=== PATIENT | female | born 2000 | race Caucasian/White ===

== ENCOUNTER 2022-09-16 17:55 | Inpatient (IN) | payer BC, OTHER ==
[~2022-09-16] VITALS: Ht 157.4 cm; Wt 85.0 kg
[2022-09-16 18:00] VITALS: BP 115/75
[2022-09-16] MEDS ORDERED: LEVO25CA4 PO (18:42)
[2022-09-16] MEDS ORDERED: PREN1TAB19 PO (18:44)
[2022-09-16] MEDS ORDERED: NS IV 500 ML 500 ML IV SCH (19:30)
[2022-09-16] MEDS ORDERED: NS IV 500 ML 500 ML ONE (19:35)
[2022-09-16] MEDS ORDERED: D5 LR IV SOLUTION 1,000 ML IV ONE (19:35)
[2022-09-16 19:40] LABS: BILIRUBIN,URINE NEGATIVE (NEGATIVE); CLARITY,URINE SL CLOUDY; COLOR,URINE YELLOW; GLUCOSE, URINE (UA) NEGATIVE (NEGATIVE); KETONES,URINE TRACE (NEGATIVE); LEUKOCYTE ESTERASE ,URINE 2+ (NEGATIVE); NITRITE,URINE NEGATIVE (NEGATIVE); PROTEIN,URINE TRACE (NEGATIVE)
[2022-09-16] MEDS: CATHETER FLUSH 10 ML SYR IV SCH (19:42)
[2022-09-16 19:52] LABS: BACTERIA,URINE FEW /HPF; RBC,URINE 0-2 /HPF; SQUAMOUS EPITHELIAL CELL,UR 25-50 /HPF
[2022-09-16 19:53] LABS: EOSINOPHILS # (AUTO) 0.1 10^3/uL (0.0-0.3); EOSINOPHILS % (AUTO) 1 % (0-10); HEMOGLOBIN 12.1 g/dL (11.5-16.0); LYMPHOCYTES % (AUTO) 16 % (12-44)
[2022-09-16 19:55] LABS: BASOPHILS % (AUTO) 0 % (0-10); HEMATOCRIT 34 % (35-52); LYMPHOCYTES # (AUTO) 1.4 10^3/uL (1.0-4.0); MEAN CORPUSCULAR HEMOGLOBIN 32 pg (25-34); MEAN CORPUSCULAR HGB CONC 35 g/dL (32-36); MEAN CORPUSCULAR VOLUME 90 fL (80-99); MEAN PLATELET VOLUME 13.1 fL (9.0-12.2); MONOCYTES # (AUTO) 0.9 10^3/uL (0.0-1.0); MONOCYTES % (AUTO) 10 % (0-12); NEUTROPHILS # (AUTO) 6.7 10^3/uL (1.8-7.8); NEUTROPHILS % (AUTO) 74 % (42-75); PLATELET COUNT 123 10^3/uL (130-400); WHITE BLOOD COUNT 9.2 10^3/uL (4.3-11.0)
[2022-09-16 19:56] LABS: SMEAR SCAN COMMENT YES
[2022-09-16] MEDS: D5 LR IV SOLUTION 1,000 ML IV SCH (19:58)
[2022-09-16 20:32] VITALS: BP 115/75
--- NOTE | 2022-09-16 20:37 | History & Physical-OB ---
CAMILLEBEAU 09/16/222036: OB - Chief Complaint & HPI Date/Time Date of Admission: Date of Admission: Sep 16, 2022 at 17:55 Date seen by a Provider: Sep 16, 2022 Time Seen by a Provider: 21:00 Chief Complaint/History OB-Reason for Admission/Chief: Induction of Labor Hx : 2 Hx Para: 1 Hx Last Menstrual Period: 12/11/2021 Expected Date of Delivery: Sep 17, 2022 Gestational Age in Weeks: 39 Gestational Age in Days: 6 History of Labs Laboratory Tests 09/16/22 19:42 Other Rh+ and GBS negative 22yo at [id number] presents for elective induction of labor. Pt reported 1 or 2 contractions at admission, but currently not in any pain or discomfort. Pt states she is able to ambulate for urine and fecal elimination. Pt's membranes are intact. Platelets and Hct are low at 123,000 and 34% respectively. Urinalysis reports trace proteins and ketones, as well as 2+ for Leukocyte Esterase. Allergies and Home Medications Allergies Coded Allergies: No Known Drug Allergies (Unverified , 09/16/22) Patient Home Medication List Home Medication List Reviewed: Yes Levothyroxine Sodium (Levothyroxine) 25 Mcg Capsule, 25 MCG PO DAILY, (Reported) Entered as Reported by: BRYAN FIGUEROA on 09/16/221841 Last Action: New Order Vit/Iron Fumarate/FA ( Vitamins Tablet) 28 Mg Iron-800 Mcg Tablet, 1 EACH PO DAILY, (Reported) Entered as Reported by: BRYAN FIGUEROA on 09/16/221843 Last Action: New Order OB - History Hx of Present Care: Yes Obstetrical Complications: None Medical Complications: Other (Hypothyroidism currently managed/controlled with 25mcg Levothyroxine ) Information Induced Hypertension: No Maternal Gestational Diabetes: No Hemorrhage: No Obstetrical History Hx : 2 Hx Para: 1 Hx # Term Pregnancies: 0 Hx # Pregnancies: 0 Number of Living Children: 0 Hx Termination: No Hx Total # of Abortions (Spona: 1 Hx Multiple Gestation: No Hx Ectopic : No Hx Stillbirth: No Hx Complication: No Hx Induced Hypertens: No Hx Maternal Gestational Diabet: No Hx Hemorrhage: No Patient Past Medical History Past medical history positive for hypothyrodism. Managed w/ 25mcg Levothyroxine. Social History/Family History Alcohol Use: Denies Use Recreational Drug Use: No Smoking Cessation: Former smoker 2nd Hand Smoke Exposure: No Immunizations Influenza Vaccine Up-to-Date: No; Not Current Tetanus Booster (TDap): Less than 5yrs Rubella: immune RPR/VDRL: Negative GBS Status: Negative HBsAG: Negative OB - Admission Exam Physical Exam Vitals: Vital Signs 09/16/22 18:00 Temp 37.3 Pulse 88 Resp 18 B/P (MAP) 115/75 (88) Pulse Ox 99 O2 Delivery Room Air Heart: Rhythm Normal (RRR normal S1 and S2 without gallops ) Lungs: Clear (CTAB w/o Rhonci, Rales, or wheezes) Abdomen: Gravid Extremities: Edema (Trace Edema ) Cervical Dilatation: 1cm Effacement: Other (80%) Membranes: Intact Heart Rate: 130's Accelerations: Accelerations Present Contractions on Admission: None Labs Laboratory Tests Test 09/16/22 19:24 09/16/22 19:42 Range/Units Urine Color YELLOW Urine Clarity SL CLOUDY Urine pH 6.0 5-9 Urine Specific [place] 1.025 H 1.016-1.022 Urine Protein TRACE H NEGATIVE Urine Glucose (UA) NEGATIVE NEGATIVE Urine Ketones TRACE H NEGATIVE Urine Nitrite NEGATIVE NEGATIVE Urine Bilirubin NEGATIVE NEGATIVE Urine Urobilinogen 0.2 < = 1.0 MG/DL Urine Leukocyte Esterase 2+ H NEGATIVE Urine RBC (Auto) NEGATIVE NEGATIVE Urine RBC 0-2 /HPF Urine WBC 5-10 H /HPF Urine Squamous Epithelial Cells 25-50 H /HPF Urine Crystals NONE /LPF Urine Bacteria FEW H /HPF Urine Casts NONE /LPF Urine Mucus SMALL H /LPF Urine Culture Indicated YES White Blood Count 9.2 4.3-11.0 10^3/uL Red Blood Count 3.80 3.80-5.11 10^6/uL Hemoglobin 12.1 11.5-16.0 g/dL Hematocrit 34 L 35-52 % Mean Corpuscular Volume 90 80-99 fL Mean Corpuscular Hemoglobin 32 25-34 pg Mean Corpuscular Hemoglobin Concent 35 32-36 g/dL Red Cell Distribution Width 13.5 10.0-14.5 % Platelet Count 123 L 130-400 10^3/uL Mean Platelet Volume 13.1 H 9.0-12.2 fL Immature Granulocyte % (Auto) 0 % Neutrophils (%) (Auto) 74 42-75 % Lymphocytes (%) (Auto) 16 12-44 % Monocytes (%) (Auto) 10 0-12 % Eosinophils (%) (Auto) 1 0-10 % Basophils (%) (Auto) 0 0-10 % Neutrophils # (Auto) 6.7 1.8-7.8 10^3/uL Lymphocytes # (Auto) 1.4 1.0-4.0 10^3/uL Monocytes # (Auto) 0.9 0.0-1.0 10^3/uL Eosinophils # (Auto) 0.1 0.0-0.3 10^3/uL Basophils # (Auto) 0.0 0.0-0.1 10^3/uL Immature Granulocyte # (Auto) 0.0 0.0-0.1 10^3/uL Percent Immature Platelet Fraction 26.4 H 0.0-7.6 % Smear Scan YES OB - Assessment/Plan/Diagnosis Assessment Assessment: induction of labor Admission Dx Elective Induction of Labor Planned Admission Status: Observation Plan Induction Method: per Misoprostol Protocol MC SHEPARD DO 09/17/22 0718: Allergies and Home Medications Allergies Coded Allergies: No Known Drug Allergies (Unverified , 09/16/22) Patient Home Medication List Levothyroxine Sodium (Levothyroxine) 25 Mcg Capsule, 25 MCG PO DAILY, (Reported) Entered as Reported by: BRYAN FIGUEROA on 09/16/221841 Last Action: New Order Vit/Iron Fumarate/FA ( Vitamins Tablet) 28 Mg Iron-800 Mcg Tablet, 1 EACH PO DAILY, (Reported) Entered as Reported by: BRYAN FIGUEROA on 09/16/221843 Last Action: New Order OB - Assessment/Plan/Diagnosis Plan Other Plan Verification and Attestation of Medical Student E/M Service A medical student performed and documented this service in my presence. I reviewed and verified all information documented by the medical student and made modifications to such information, when appropriate. I personally performed the physical exam and medical decision making. Mc Shepard, Sep 17, 2022,07:18 BEAU OBRIEN Sep 16, 2022 20:37 MC SHEPARD DO Sep 17, 2022 07:18
[2022-09-16 22:30] VITALS: BP 123/63
[2022-09-17] VITALS (75 sets, daily range): BP systolic 100–155; BP diastolic 54–96
[2022-09-17] MEDS: D5 LR IV SOLUTION 1,000 ML IV SCH ×3 (03:10→18:53)
[2022-09-17] MEDS ORDERED: OXYTOCIN PRE-MIX DRIP 500 ML IV SCH (07:45)
[2022-09-17] MEDS ORDERED: LACTATED RINGERS 1,000 ML IV ONE ×3 (09:30→10:45)
[2022-09-17] MEDS ORDERED: fentaNYL 2 mcg/ml BUPIVA 0.125 100 ML ONE (09:30)
[2022-09-17] MEDS ORDERED: HYDROmorphone 2 MG/ML VIAL (DILAUDID) IV PRN (10:00)
[2022-09-17] MEDS ORDERED: BUPIVACAINE 0.25% 30 ML (SENSORCAINE) VIAL ONE (10:18)
[2022-09-17] MEDS ORDERED: fentaNYL INJ 100 MCG/2 ML AMP ONE ×2 (10:18→20:40)
[2022-09-17] MEDS ORDERED: NALOXONE 0.4 MG/ML 1 ML (NARCAN) VIAL IV PRN ×2 (10:45→20:00)
[2022-09-17] MEDS ORDERED: fentaNYL INJ 100 MCG/2 ML AMP INJ ONE (10:45)
[2022-09-17] MEDS ORDERED: ONDANSETRON 4 MG/2 ML (SDV) Z0FRAN IV PRN (10:45)
[2022-09-17] MEDS: fentaNYL 2 mcg/ml BUPIVA 0.125 100 ML EPI SCH ×2 (11:22→18:53)
[2022-09-17] MEDS ORDERED: CITRIC ACID/SOB CIT (BICITRA) 30 ML UDC ONE (19:51)
[2022-09-17] MEDS ORDERED: METOCLOPRAMIDE INJ 10 MG/2 ML (REGLAN) ONE (19:51)
[2022-09-17] MEDS ORDERED: FAMOTIDINE 20MG/2ML IV (PEPCID) ONE (19:51)
--- NOTE | 2022-09-17 19:58 | Progress Note ---
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 Pitocin augmentation not tolerated and stopped this afternoon, this was followed by a regular contraction pattern, however made no cervical change. Discussed with patient concern with further augmentation stressing fetus and recommended due to arrest in dilatation and intolerance of augmentation of labor primary . Risk reviewed with patient and family, all questions answered. Will proceed with delivery with OR crew availability. JANES SHEPARD DO Sep 17, 2022 19:58
[2022-09-17] MEDS ORDERED: LACTATED RINGERS 1,000 ML IV PRN ×2 (20:00)
[2022-09-17] MEDS ORDERED: FAMOTIDINE 20MG/2ML IV (PEPCID) IV ONE (20:00)
[2022-09-17] MEDS ORDERED: ONDANSETRON 4 MG/2 ML (SDV) Z0FRAN IVP PRN (20:00)
[2022-09-17] MEDS ORDERED: METOCLOPRAMIDE INJ 10 MG/2 ML (REGLAN) IV ONE (20:00)
[2022-09-17] MEDS ORDERED: MEASLES,MUMPS,RUBELLA 1 EA INJ SC SCH (20:00)
[2022-09-17] MEDS ORDERED: CITRIC ACID/SOB CIT (BICITRA) 30 ML UDC PO ONE (20:00)
[2022-09-17] MEDS ORDERED: TETANUS,DIPTH,PERTUSS P/F (BOOSTRIX) 0.5 ML VIAL IM SCH (20:00)
[2022-09-17] MEDS: CATHETER FLUSH 10 ML SYR IV SCH (20:01)
--- NOTE | 2022-09-17 20:01 | Discharge Inst-Women's Service ---
Discharge Inst-Women's Serv Depart Medication/Instructions New, Converted or Re-Newed RX: Transmitted to Pharmacy Final Diagnosis POD 2 PLTCS Problems Reviewed?: Yes Consults/Follow Up Additional Follow Up: Yes Orders/Referrals Dr. Mcmanus in 7-10 days and in 6 weeks Activity Activity: Activity as Tolerated Driving Instructions: No Driving for 1 Week NO SMOKING: NO SMOKING Nothing Inside Vagina: No Douching, No Malott, No Tampons Diet Discharge Diet: No Restrictions Symptoms to Report to : Bleeding Excessive, Pain Increased, Fever Over 101 Degrees F, Vaginal Bleeding Increase, Questions/Concerns For Any Problems or Questions: Contact Your Physician Skin/Wound Care Infection Signs and Symptoms: Increased Redness, Foul Odor of Wound, Increased Drainage, Skin Itchy or Has a Rash, Increased Swelling, Temperature Above 101 F Operative Area Clean and Dry: Keep Incision Clean/Dry Stitches/Broadus/Dermabond: Dermabond, Care of Stitches Bathing Instructions: JANES Pugh DO Sep 17, 2022 20:01
[2022-09-17] MEDS ORDERED: DOCU100C37 PO (20:02)
[2022-09-17] MEDS ORDERED: ACHD5005 PO (20:02)
[2022-09-17] MEDS ORDERED: IBUP-844 PO (20:02)
[2022-09-17] MEDS ORDERED: ceFAZolin INJECTION 2,000 MG ONE (20:22)
[2022-09-17] MEDS ORDERED: NS (IVPB) 50 ML ONE (20:23)
[2022-09-17] MEDS ORDERED: LIDOCAINE PF 2% 5 ML (XYLOCAINE) VIAL ONE (20:40)
[2022-09-17] MEDS ORDERED: ONDANSETRON 4 MG/2 ML (SDV) Z0FRAN ONE ×2 (20:40→21:43)
[2022-09-17] MEDS ORDERED: OXYTOCIN PRE-MIX DRIP 1,000 ML IV ONE (20:40)
[2022-09-17] MEDS ORDERED: BUPIVACAINE 0.5% 30 ML (SENSORCAINE) VIAL ONE (20:40)
[2022-09-17] MEDS ORDERED: METHYLERGONOVINE 0.2 MG/ML (METHERGINE) AMP ONE (21:10)
[2022-09-17] MEDS ORDERED: PHENYLEPHRINE 100 MCG/ML 10 ML (ANESTHESIA) SYR ONE (21:10)
[2022-09-17] MEDS ORDERED: CATHETER FLUSH 10 ML SYR IV SCH (22:00)
[2022-09-17] MEDS: KETOROLAC 30 MG/ML VIAL IV SCH (22:03)
[2022-09-17] MEDS: OXYTOCIN PRE-MIX DRIP 500 ML IV SCH (23:02)
[2022-09-18] MEDS: HYDROcodone/APAP 5 MG/325 MG (LORTAB) TAB PO PRN ×3 (00:10→17:14)
[2022-09-18] MEDS: DOCUSATE SODIUM 100 MG (COLACE) CAP PO SCH ×3 (00:30→21:35)
[2022-09-18] MEDS: D5 LR IV SOLUTION 1,000 ML IV SCH (00:30)
[2022-09-18] MEDS: KETOROLAC 30 MG/ML VIAL IV SCH (04:27)
[2022-09-18 04:30] VITALS: BP 122/55
--- NOTE | 2022-09-18 05:38 | OPERATIVE REPORT ---
PREOPERATIVE DIAGNOSES: 1. A 22-year-old G2, P0 at 40 weeks gestation. 2. Failure to progress. 2. intolerance of augmentation of labor. POSTOPERATIVE DIAGNOSES: 1. A 22-year-old G2, P0 at 40 weeks gestation. 2. Failure to progress. 2. intolerance of augmentation of labor. PROCEDURE: Primary low transverse section. SURGEON: Mc Shepard DO. ANESTHESIA: Epidural, which was bolused. ESTIMATED BLOOD LOSS: 600 mL URINE OUTPUT: 750 mL clear at end of procedure. FLUIDS: 1500 mL lactated Ringer's solution. FINDINGS: Live female infant weighing 7 pounds 11 ounces, Apgars of 6 and 8. Grossly normal-appearing uterus, bilateral fallopian tubes and ovaries. SPECIMEN SENT: Placenta. INDICATIONS FOR PROCEDURE: This 22-year-old female is a patient, who was brought in for induction of labor for postdates. Last evening, she received misoprostol overnight was augmented with Pitocin throughout the day today after artificial rupture of membranes was performed. She progressed to 5 cm and made no further progression every time I attempted augmentation would result in distress on the heart tracing. Due to this, I discussed with the patient and proceed with primary . Risks of the procedure were discussed with the patient in detail. After all of her questions were answered, consent was obtained, the patient was taken to the operating room. OPERATIVE REPORT IN DETAIL: Once in the operating room, epidural analgesia was bolused and found to be adequate. She was placed in the supine position with leftward tilt, prepped and draped in normal sterile fashion. A timeout was performed. Anesthesia was tested. I then make a Pfannenstiel skin incision with a knife and carried down to the underlying fascia using Bovie cautery. The fascial incision was extended laterally using Bovie cautery. Superior aspect of the fascial incision was then grasped with Shirley clamps, tented up and dissected off the underlying rectus muscles. The inferior aspect of the fascial incision was then grasped with Shirley clamps, tented up and dissected off the underlying rectus muscles. Rectus muscles were dissected down the midline sharply using Metzenbaum scissors to expose the peritoneum, which entered bluntly and extended using blunt traction. An Rolando ring retractor was placed in the peritoneal incision, which offers excellent lateral sidewall retraction. I identified the lower uterine segment, which was found to be thinned out and make a low transverse incision to the vesicouterine peritoneum and bluntly dissected off the lower uterine segment, creating a bladder flap and then proceeded with my myotomy until membranes are visualized, at which point I extended the uterine incision laterally and superiorly using bandage scissors. Amniotomy was performed. In the process of doing this, a slightly meconium-stained fluid is noted at that time. was found in vertex presentation. With gentle fundal pressure, the 's head elevated through the incision where nuchal cord was reduced x1. Anterior and posterior shoulders were delivered. The was brought to the operative field. The cord was doubly clamped and cut and was handed off to the waiting nurses in attendance. Cord blood was collected. Three-vessel cord with intact placenta was delivered spontaneously thereafter. IV Pitocin was initiated to facilitate uterine contractions. Uterine fundus was confirmed by manual massage. The uterus was exteriorized and cleared of all major clots and debris. I then proceeded with closing the uterine incision using 0 Vicryl suture in a running locked fashion. Second layer of imbricating 0 Monocryl was placed. Excellent hemostasis was noted. After doing this, we then placed the uterus back in the pelvis and copiously irrigated the pelvis with normal saline. There is some light bogginess of the uterus, so I have anesthesia administered 0.2 mg of Methergine IM and the bogginess resolved. I then removed the Rolando ring retractor and proceeded with closing the peritoneum using 3-0 Vicryl suture in a running fashion. Rectus muscle was reapproximated using 3-0 Vicryl suture in interrupted fashion. The fascia was reapproximated with 0 Vicryl suture in running fashion. The subcutaneous tissue was reapproximated using 3-0 plain interrupted subcutaneous stitch and the skin was reapproximated using 4-0 Monocryl in running subcuticular. Dermabond was applied to incision. A sterile dressing with adhesive white tape. The patient tolerated the procedure well and was taken to recovery in stable condition. Lap and sponge counts were correct at the end of the procedure. Instrument counts correct as well. A 2 grams of Ancef given preoperatively for infection prophylaxis. Job ID: [id number] DocumentID: [id number] Dictated Date: 09/17/2022 21:36:20 Recorder Helper Seismograph Date: 09/18/2022 05:36:00 Dictated By: MC SHEPARD DO
[2022-09-18 06:30] LABS: BASOPHILS % (AUTO) 0 % (0-10); EOSINOPHILS % (AUTO) 0 % (0-10)
[2022-09-18 06:31] LABS: HEMATOCRIT 29 % (35-52); HEMOGLOBIN 9.9 g/dL (11.5-16.0); LYMPHOCYTES # (AUTO) 0.9 10^3/uL (1.0-4.0); LYMPHOCYTES % (AUTO) 4 % (12-44); MEAN CORPUSCULAR HEMOGLOBIN 31 pg (25-34); MEAN CORPUSCULAR HGB CONC 34 g/dL (32-36); MEAN CORPUSCULAR VOLUME 92 fL (80-99); MEAN PLATELET VOLUME 13.8 fL (9.0-12.2); MONOCYTES # (AUTO) 0.9 10^3/uL (0.0-1.0); MONOCYTES % (AUTO) 4 % (0-12); NEUTROPHILS # (AUTO) 19.7 10^3/uL (1.8-7.8); NEUTROPHILS % (AUTO) 91 % (42-75); PLATELET COUNT 93 10^3/uL (130-400); WHITE BLOOD COUNT 21.7 10^3/uL (4.3-11.0)
[2022-09-18 06:34] LABS: SMEAR SCAN COMMENT YES
--- NOTE | 2022-09-18 07:01 | Anesthesia-Regional Post-Op ---
Regional Patient Condition Mental Status: Alert, Oriented x3 Circulation: Same as Pre-Op Headache: Absent Sensation: Full Recovery Motor Block: Absent Post Op Complications Complications None Follow Up Care/Instructions Patient Instructions None needed. Anesthesia/Patient Condition Patient is doing well, no complaints, stable vital signs, no apparent adverse anesthesia problems. No complications reported per nursing. ERROL UMANZOR CRNA Sep 18, 2022 07:01
[2022-09-18 09:30] VITALS: BP 119/58
[2022-09-18] MEDS: IBUPROFEN 600 MG (MOTRIN) TAB PO SCH ×3 (09:43→21:35)
--- NOTE | 2022-09-18 10:04 | Postpartum Progress Note ---
Note Note Day # 1 Subjective: Patient is without complaints. Ambulating, voiding. Tolerating a regular diet without nausea or vomiting. Normal lochia. Pain is well controlled with oral pain medications. Physical Exam: General - Alert and oriented, no apparent distress Abdomen - Soft, appropriately tender to palpation, non-distended, fundus firm at umbilicus; incision c/d/i Extremities - no edema, negative Gilberto's bilaterally Assessment: Post- day # 1, status post PLTCS Recovering well, hemodynamically stable Acute blood loss anemia Plan: Routine care. Encourage breast feeding. Encourage ambulation. Ferrous sulfate supplementation. Plan for discharge tomorrow Vitals - Labs Vital Signs - I&O Vital Signs Date Time Temp Pulse Resp B/P (MAP) Pulse Ox O2 Delivery O2 Flow Rate FiO2 09/18/22 04:30 37.2 102 18 122/55 (77) 97 Room Air 09/17/22 23:36 89 18 119/63 (81) 97 Room Air 09/17/22 22:51 37.4 96 18 118/57 (77) 96 Room Air 09/17/22 22:30 36.4 20 125/76 (92) 97 Room Air 09/17/22 22:30 Room Air 09/17/22 22:26 Room Air 09/17/22 22:23 Room Air 09/17/22 22:22 18 123/75 (91) 98 Room Air 09/17/22 22:18 Room Air 09/17/22 22:18 18 118/74 (89) 97 Room Air 09/17/22 22:15 Room Air 09/17/22 22:12 Room Air 09/17/22 22:10 22 108/77 (87) 97 Room Air 09/17/22 22:00 Room Air 09/17/22 22:00 18 115/89 (98) 98 Room Air 09/17/22 21:50 Room Air 09/17/22 21:50 18 109/74 (86) 98 Room Air 09/17/22 21:39 Room Air 09/17/22 21:39 37.3 16 100/62 (75) 96 Room Air 09/17/22 20:30 38.5 86 18 129/62 (84) 100 Room Air 09/17/22 20:15 78 18 120/61 (80) Room Air 09/17/22 20:00 102 18 113/61 (78) Room Air 09/17/22 19:45 81 18 123/67 (85) Room Air 09/17/22 19:30 77 18 125/71 (89) 100 Room Air 09/17/22 19:15 77 18 125/71 (89) 100 Room Air 09/17/22 19:00 113 18 123/79 (94) 100 Room Air 09/17/22 18:45 82 18 126/73 (90) 100 Room Air 09/17/22 18:35 89 18 121/58 (79) 98 Room Air 09/17/22 18:18 37.3 80 18 155/96 (115) 97 Room Air 09/17/22 18:00 82 18 101/64 (76) 100 Room Air 09/17/22 17:45 64 18 104/55 (71) 100 Room Air 09/17/22 17:32 64 18 109/56 (73) 100 Room Air 09/17/22 17:15 69 18 105/56 (72) 100 Room Air 09/17/22 17:00 82 18 123/74 (90) 100 Room Air 09/17/22 16:45 86 18 125/77 (93) 99 Room Air 09/17/22 16:30 71 18 125/73 (90) 99 Room Air 09/17/22 16:15 89 18 126/70 (88) 99 Room Air 09/17/22 16:00 70 18 117/69 (85) 98 Room Air 09/17/22 15:45 71 18 117/59 (78) 98 Room Air 09/17/22 15:30 82 18 119/61 (80) 99 Room Air 09/17/22 15:15 82 18 110/64 (79) 100 Room Air 09/17/22 15:00 37.3 90 18 120/74 (89) 100 Room Air 09/17/22 14:45 74 18 112/75 (87) 100 Room Air 09/17/22 14:30 79 18 113/68 (83) 100 Room Air 09/17/22 14:15 68 18 106/55 (72) 100 Room Air 09/17/22 14:00 77 18 124/77 (93) 100 Room Air 09/17/22 13:45 87 18 118/69 (85) 100 Room Air 09/17/22 13:30 88 18 116/72 (87) 100 Room Air 09/17/22 13:15 109 18 119/73 (88) 100 Room Air 09/17/22 13:00 36.4 79 18 119/76 (90) 100 Room Air 09/17/22 12:45 121 18 104/61 (75) 99 Room Air 09/17/22 12:30 78 18 116/68 (84) 99 Room Air 09/17/22 12:15 76 18 114/69 (84) 99 Room Air 09/17/22 12:00 72 18 113/64 (80) 98 Room Air 09/17/22 11:50 80 18 111/62 (78) 98 Room Air 09/17/22 11:46 72 18 113/61 (78) 98 Room Air 09/17/22 11:40 64 18 111/59 (76) 98 Room Air 09/17/22 11:35 72 18 120/61 (80) 98 Room Air 09/17/22 11:30 74 18 117/58 (77) 98 Room Air 09/17/22 11:25 89 18 121/56 (77) 98 Room Air 09/17/22 11:20 103 18 151/86 (107) 98 Room Air 09/17/22 11:15 85 18 117/59 (78) 99 Room Air 09/17/22 11:10 73 18 129/67 (87) 99 Room Air 09/17/22 11:05 70 18 129/61 (83) 99 Room Air 09/17/22 11:00 102 18 142/74 (96) 99 Room Air 09/17/22 10:55 75 18 116/66 (83) 98 Room Air 09/17/22 10:50 121 18 117/57 (77) 99 Room Air 09/17/22 10:45 84 18 131/66 (87) 98 Room Air 09/17/22 10:45 78 18 122/65 (84) 98 Room Air 09/17/22 10:40 36.3 78 18 122/65 (84) 98 Room Air 09/17/22 10:35 84 18 119/68 (85) 98 Room Air 09/17/22 10:30 76 18 142/81 (101) 98 Room Air 09/17/22 10:25 64 18 134/71 (92) Room Air 11/7/22 10:05 73 18 127/79 (95) Room Air I & O 09/18/22 07:00 Intake Total 2000 ml Output Total 1275 ml Balance 725 ml Labs Laboratory Tests 09/18/22 06:22: White Blood Count 21.7H, Red Blood Count 3.17L, Hemoglobin 9.9L, Hematocrit 29L, Mean Corpuscular Volume 92, Mean Corpuscular Hemoglobin 31, Mean Corpuscular Hemoglobin Concent 34, Red Cell Distribution Width 13.6, Platelet Count 93L, Mean Platelet Volume 13.8H, Immature Granulocyte % (Auto) 1, Neutrophils (%) (Auto) 91H, Lymphocytes (%) (Auto) 4L, Monocytes (%) (Auto) 4, Eosinophils (%) (Auto) 0, Basophils (%) (Auto) 0, Neutrophils # (Auto) 19.7H, Lymphocytes # (Auto) 0.9L, Monocytes # (Auto) 0.9, Eosinophils # (Auto) 0.0, Basophils # (Auto) 0.0, Immature Granulocyte # (Auto) 0.1, Percent Immature Platelet Fraction 25.2H, Smear Scan YES Microbiology 09/16/22 Urine Culture - Final, Complete Gram Pos Mixed Bacterial Marian MITCHELL HURTADO COSMETIC CHEMIST Sep 18, 2022 10:04
[2022-09-18 13:23] VITALS: BP 112/56
[2022-09-18 18:00] VITALS: BP 117/65
[2022-09-18] MEDS: OXYTOCIN PRE-MIX DRIP 500 ML IV SCH (21:28)
[2022-09-18 21:35] VITALS: BP 126/59
[2022-09-19 02:43] VITALS: BP 129/65
[2022-09-19] MEDS: HYDROcodone/APAP 5 MG/325 MG (LORTAB) TAB PO PRN (02:43)
[2022-09-19] MEDS: IBUPROFEN 600 MG (MOTRIN) TAB PO SCH ×2 (02:43→09:34)
[2022-09-19 08:37] VITALS: BP 127/73
[2022-09-19] MEDS: DOCUSATE SODIUM 100 MG (COLACE) CAP PO SCH (09:34)
--- NOTE | 2022-09-19 09:59 | Postpartum Progress Note ---
Note Note Day # 2 Subjective: Patient is without complaints. Ambulating, voiding. Tolerating a regular diet without nausea or vomiting. Normal lochia. Pain is well controlled with oral pain medications. Physical Exam: General - Alert and oriented, no apparent distress Abdomen - Soft, appropriately tender to palpation, non-distended, fundus firm at umbilicus; incision c/d/i Extremities - no edema, negative Gilberto's bilaterally Assessment: Post- day # 2, status post PLTCS Recovering well, hemodynamically stable Acute blood loss anemia Plan: Routine care. Encourage breast feeding. Encourage ambulation. Ferrous sulfate supplementation. Plan for discharge today Vitals - Labs Vital Signs - I&O Vital Signs Date Time Temp Pulse Resp B/P (MAP) Pulse Ox O2 Delivery O2 Flow Rate FiO2 09/19/22 08:37 36.9 90 16 127/73 (91) 97 Room Air 09/19/22 02:43 36.0 90 16 129/65 (86) 98 Room Air 09/18/22 21:35 36.5 88 16 126/59 (81) 98 Room Air 09/18/22 18:00 36.3 96 16 117/65 (82) 98 Room Air 09/18/22 13:23 36.3 94 16 112/56 (74) 96 Room Air Labs Microbiology 09/16/22 Urine Culture - Final, Complete Gram Pos Mixed Bacterial Marian MITCHELL HURTADO APRN Sep 19, 2022 09:59
[2022-09-19 11:46] VITALS: BP 126/76
[2022-09-19 14:30] VITALS: BP 126/76
== END 2022-09-19 14:30 | disposition home or self-care (01) | DRG 787 ==
LOC: LDRP 17:55
PROVIDERS: ADMIT Obstetrics & Gynecology; ATTEND Obstetrics & Gynecology
PROC: 10D00Z1 Extraction of Products of Conception, Low, Open Approach (ICD-10-PCS; principal; 2022-09-16)
DX: O62.0 Primary inadequate contractions (principal); D62 Acute posthemorrhagic anemia; O99.284 Endocrine, nutritional and metabolic diseases complicating childbirth; E03.9 Hypothyroidism, unspecified; Z3A.39 39 weeks gestation of pregnancy; Z37.0 Single live birth; O90.81 Anemia of the puerperium; O77.9 Labor and delivery complicated by fetal stress, unspecified
CPT/HCPCS: 36415; 81000; 85025; 86780; 86850; 86900; 86901; 87088